=== PATIENT | male | born 1995 | race African-American/Black ===

== ENCOUNTER 2016-11-30 18:18 | Emergency (ER) | payer MEDICAID ==
[2016-11-30 18:32] VITALS: BP 106/80; PULSE 76; RESP 17; TEMP 98.4; O2SAT 97
--- NOTE | 2016-11-30 18:57 | EDPHY ---
H & P Stated Complaint: LESIONS ON GENITALS Time Seen by Provider: 11/30/16 18:40 HPI/ROS: CHIEF COMPLAINT: Bumps him pubic area HISTORY OF PRESENT ILLNESS: Patient is a 21-year-old healthy young man who comes to the emergency department complaining of bumps in his pubic region for the last 6 months. He had sexual contact with the female in June. He spoke with her and she told him that she had been treated for herpes. He got tested for herpes few months ago the tests were negative. He states the lesions have never evolved or changed but simply been present and occasionally he notices new ones. They are not painful or itchy or erythematous. No draining. No penile discharge. No testicular pain or swelling. REVIEW OF SYSTEMS: Constitutional: denies: chills, fever, recent illness, recent injury EENTM: denies: blurred vision, double vision, nose congestion Respiratory: denies: cough, shortness of breath Cardiac: denies: chest pain, irregular heart rate, lightheadedness, palpitations Gastrointestinal/Abdominal: denies: abdominal pain, diarrhea, nausea, vomiting, blood streaked stools Genitourinary: denies: dysuria, frequency, hematuria, pain Musculoskeletal: denies: joint pain, muscle pain Skin: See HPI Neurological: denies: headache, numbness, paresthesia, tingling, dizziness, weakness Hematologic/Lymphatic: denies: blood clots, easy bleeding, easy bruising Immunologic/allergic: denies: HIV/AIDS, transplant EXAM: GENERAL: Well-appearing, well-nourished and in no acute distress. HEAD: Atraumatic, normocephalic. EYES: Pupils equal round and reactive to light, extraocular movements intact, sclera anicteric, conjunctiva are normal. ENT: TMs normal, nares patent, oropharynx clear without exudates. Moist mucous membranes. NECK: Normal range of motion, supple without lymphadenopathy or JVD. LUNGS: Breath sounds clear to auscultation bilaterally and equal. No wheezes rales or rhonchi. HEART: Regular rate and rhythm without murmurs, rubs or gallops. ABDOMEN: Soft, nontender, normoactive bowel sounds. No guarding, no rebound. No masses appreciated. : Patient has small painless work like lesions to the genital region. Not pedunculated, papillary, skin colored, BACK: No CVA tenderness, no spinal tenderness, step-offs or deformities EXTREMITIES: Normal range of motion, no pitting or edema. No clubbing or cyanosis. NEUROLOGICAL: Cranial nerves II through XII grossly intact. Normal speech, normal gait. 5/5 strength, normal movement in all extremities, normal sensation PSYCH: Normal mood, normal affect. SKIN: Warm, dry, normal turgor, no visible rashes or lesions. Source: Patient Exam Limitations: No limitations - Personal History Current Tetanus/Diphtheria Vaccine: Unsure - Medical/Surgical History Hx Asthma: No Hx Chronic Respiratory Disease: No Hx Diabetes: No Hx Cardiac Disease: No Hx Renal Disease: No Hx Cirrhosis: No Hx Alcoholism: No Hx HIV/AIDS: No Hx Splenectomy or Spleen Trauma: No Other PMH: anxiety, lasik surg - Family History Significant Family History: No pertinent family hx - Social History Smoking Status: Never smoked Alcohol Use: Sober Drug Use: None Constitutional: Initial Vital Signs Temperature (C) 36.9 C 11/30/16 18:31 Heart Rate 76 11/30/16 18:31 Respiratory Rate 17 11/30/16 18:31 Blood Pressure 106/80 11/30/16 18:31 O2 Sat (%) 97 11/30/16 18:31 O2 Delivery Mode Room Air Allergies/Adverse Reactions: guaifenesin Allergy (Verified 11/30/16 18:30) Home Medications: Medication Instructions Recorded NK [No Known Home Meds] 11/30/16 Medical Decision Making ED Course/Re-evaluation: Patient states that he has not had discharge the lesions. We did try to Andry 1 with a needle. No fluid within. I will refer him to Dermatology for genital warts. Differential Diagnosis: Partial list of the Differential diagnosis considered include but were not limited to; genital warts, scabies, herpes and although unlikely based on the history and physical exam, I also considered gonorrhea, chlamydia cellulitis, abscess. I discussed these differential diagnoses and the plan with the patient as well as the usual and expected course. The patient understands that the diagnosis is provisional and that in medicine we are not always correct and that further workup is often warranted. Usual and customary warnings were given. All of the patient's questions were answered. The patient was instructed to return to the emergency department should the symptoms at all worsen or return, otherwise to followup with the physician as we discussed. Departure - Departure Disposition: Home, Routine, Self-Care Clinical Impression: Genital warts Condition: Fair Instructions: Genital Warts (ED) Referrals: UNKNOWN,DOCTOR [Other] - As per Instructions Jovan Cox MD [Medical Doctor] - As per Instructions
== END 2016-11-30 19:04 | disposition home or self-care (01) ==
DX: A63.0 Anogenital (venereal) warts (principal)